=== PATIENT | female | born 1960 | race American Indian/Alaskan Native ===

== ENCOUNTER 2017-05-15 06:36 | Emergency (ER) | payer SELFPAY | END 2017-05-15 06:58 | disposition left against medical advice (07) | LOC: ED 06:36 | DX: M54.9 Dorsalgia, unspecified (principal); Z53.21 Procedure and treatment not carried out due to patient leaving prior to being seen by health care provider ==

== ENCOUNTER 2018-11-08 09:01 | Emergency (ER) | payer OTHER ==
[2018-11-08 09:28] VITALS: BP 139/77
--- NOTE | 2018-11-08 09:53 | Emergency Department Report ---
ED Recheck HPI - General Chief Complaint: Extremity Injury, Upper Stated Complaint: L ARM PAIN Time Seen by Provider: 11/08/18 09:49 Source: patient Mode of arrival: Ambulatory Limitations: No Limitations - History of Present Illness Initial Comments: Jessika is a 58-year-old -[place] female who comes to the ER today complaining of left wrist pain after lifting boxes at her job at [employer]. Patient has full range of motion. She denies any blunt trauma or fall. She has a wrist splint on her wrist. Past medical history none Medications none patient is requesting a work note - Related Data Previous Rx's Medication Instructions Recorded Last Taken Type predniSONE [Deltasone] 20 mg PO DAILY #5 tablet 11/08/18 Unknown Rx Allergies Allergy/AdvReac Type Severity Reaction Status Date / Time No Known Allergies Allergy Verified 11/08/18 09:02 ED Review of Systems ROS: Stated complaint: L ARM PAIN Other details as noted in HPI Comment: All other systems reviewed and negative Constitutional: denies: chills Eyes: denies: eye pain Respiratory: denies: cough Cardiovascular: denies: palpitations Endocrine: denies: flushing Gastrointestinal: denies: nausea Genitourinary: denies: urgency Musculoskeletal: as per HPI Skin: denies: lesions Neurological: denies: weakness Psychiatric: denies: anxiety Hematological/Lymphatic: denies: easy bleeding ED Past Medical Hx - Past Medical History Previous Medical History?: Yes Hx Hypertension: Yes Hx Psychiatric Treatment: Yes (anxiety) Additional medical history: BRONCHITIS - Surgical History Past Surgical History?: Yes Additional Surgical History: x2, ligament on R heel - Family History Family history: no significant - Social History Smoking Status: Never Smoker Substance Use Type: None - Medications Home Medications: Home Medications Medication Instructions Recorded Confirmed Last Taken Type predniSONE [Deltasone] 20 mg PO DAILY #5 tablet 11/08/18 Unknown Rx ED Physical Exam - General Limitations: No Limitations General appearance: alert, in no apparent distress - Head Head exam: Present: atraumatic - Eye Eye exam: Present: normal appearance, PERRL - ENT ENT exam: Present: normal exam, mucous membranes moist - Neck Neck exam: Present: normal inspection - Respiratory Respiratory exam: Present: normal lung sounds bilaterally - Cardiovascular Cardiovascular Exam: Present: regular rate - GI/Abdominal GI/Abdominal exam: Present: soft, normal bowel sounds - Rectal Rectal exam: Present: deferred - Expanded Upper Extremity Exam Left Elbow exam: Present: normal inspection Forearm Wrist exam: Present: normal inspection, full ROM. Absent: tenderness, swelling, abrasion, laceration, ecchymosis, deformity, crepidus, dislocation, erythema, tenderness over anatomical snuff box, pain with axial thumb loading Hand Wrist exam: Present: normal inspection, full ROM Neuro motor exam: Present: wrist extension intact, thumb opposition intact, thumb IP flexion intact, thumb adduction intact, fingers 2-5 abduction intact Neurosensory exam: Present: radial nerve intact, ulnar nerve intact, median nerve intact Vascular: Present: radial pulse, brachial pulse, ulnar pulse - Expanded Lower Extremity Exam Left Hip exam: Present: normal inspection, full ROM Upper Leg exam: Present: normal inspection, full ROM Knee exam: Present: normal inspection, full ROM Ankle exam: Present: normal inspection Foot/Toe exam: Present: normal inspection Neuro vascular tendon exam: Present: no vascular compromise - Back Exam Back exam: Present: normal inspection, full ROM - Neurological Exam Neurological exam: Present: alert, oriented X3, CN II-XII intact, normal gait - Psychiatric Psychiatric exam: Present: normal affect, normal mood - Skin Skin exam: Present: warm, dry ED Course Vital Signs 11/08/18 09:27 Temperature 97.8 F Pulse Rate 84 Respiratory 16 Rate Blood Pressure 139/77 O2 Sat by Pulse 100 Oximetry ED Recheck MDM - Medical Decision Making REQUESTING WORK NOTE BECAUSE HER WRIST HURT AFTER LIFTING BOXES AT HER JOB YESTERDAY NO FALL NO BLUNT TRAUMA NEURO VASC INTACT DC HOME WITH FOLLOW UP WITH ORTHO Critical care attestation.: If time is entered above; I have spent that time in minutes in the direct care of this critically ill patient, excluding procedure time. ED Disposition Clinical Impression: Wrist pain, left Disposition: DC-01 TO HOME OR SELFCARE Is pt being admited?: No Does the pt Need Aspirin: No Condition: Stable Additional Instructions: SPLINT FOR COMFORT ONLY USE LEFT WRIST TO PREVENT INJURY MOTRIN OR TYLENOL FOR MILD PAIN MED ORDERED TODAY FOLLOW UP ORTHO REFERRAL BELOW ELEVATION AND ICE/HEAT PACKS MAKE HELP Prescriptions: predniSONE [Deltasone] 20 mg PO DAILY #5 tablet Referrals: DONALD KULKARNI MD [Primary Care Provider] - 3-5 Days ARACELY CHAPPELL MD [Staff Physician] - 3-5 Days Time of Disposition: 09:51
[2018-11-08] MEDS ORDERED: DELTASONE PO NR (11:00)
== END 2018-11-08 10:03 | disposition home or self-care (01) ==
LOC: ED 09:01
DX: M25.532 Pain in left wrist (principal); I10 Essential (primary) hypertension; F41.9 Anxiety disorder, unspecified
CPT/HCPCS: 99282